=== PATIENT | male | born 1980 | race Caucasian/White ===

== ENCOUNTER 2016-12-23 10:16 | Emergency (ER) | payer SELFPAY ==
[~2016-12-23] VITALS: Ht 167.6 cm; Wt 113.4 kg
[2016-12-23 10:20] VITALS: BP 137/69
== END 2016-12-23 11:17 | disposition home or self-care (01) ==
LOC: ED 10:16
DX: S82.831A Other fracture of upper and lower end of right fibula, initial encounter for closed fracture (principal); W16.92XA Jumping or diving into unspecified water causing other injury, initial encounter; Y93.89 Activity, other specified; Y99.8 Other external cause status; Y92.89 Other specified places as the place of occurrence of the external cause

== ENCOUNTER 2017-01-20 17:46 | Emergency (ER) | payer MEDICAID ==
[~2017-01-20] VITALS: Ht 167.6 cm; Wt 120.7 kg
[2017-01-20 20:51] VITALS: BP 136/61
== END 2017-01-20 20:51 | disposition home or self-care (01) ==
LOC: ED 17:46
DX: S82.491D Other fracture of shaft of right fibula, subsequent encounter for closed fracture with routine healing (principal); M79.1 Myalgia; X58.XXXD Exposure to other specified factors, subsequent encounter
CPT/HCPCS: Q0092

== ENCOUNTER 2017-03-18 18:00 | Emergency (ER) | payer SELFPAY ==
[~2017-03-18] VITALS: Ht 167.6 cm; Wt 120.2 kg
[2017-03-18 21:58] VITALS: BP 125/75
== END 2017-03-18 21:20 | disposition home or self-care (01) ==
LOC: ED 18:00
DX: L03.116 Cellulitis of left lower limb (principal)

== ENCOUNTER 2017-10-06 07:01 | Emergency (ER) | payer MEDICAID ==
[~2017-10-06] VITALS: Ht 167.6 cm; Wt 113.4 kg
[2017-10-06 07:27] VITALS: Ht 167.6 cm; Wt 113.4 kg
[2017-10-06 09:38] VITALS: BP 133/68
== END 2017-10-06 09:38 | disposition home or self-care (01) ==
LOC: ED 07:01
DX: G47.00 Insomnia, unspecified (principal); F17.210 Nicotine dependence, cigarettes, uncomplicated; K74.60 Unspecified cirrhosis of liver; M25.50 Pain in unspecified joint; Z91.030 Bee allergy status